=== PATIENT | female | born 1955 | race Caucasian/White ===

== ENCOUNTER 2016-07-24 17:27 | Inpatient (IN) | payer OTHER ==
[~2016-07-24] VITALS: Ht 165.1 cm; Wt 88.0 kg
--- NOTE | ~2016-07-24 | CON ---
PATIENT'S NAME: ZEYNEP NO [facility] AGE: 61 Y [address] ROOM: [place] [address] [place] [facility] [place]MIT DATE: 07/24/2016 Consultation DISCHARGE DATE: FAMILY PHYSICIAN: Jina Spain MD ATTENDING PHYSICIAN: Jina Spain DATE OF CONSULTATION: 07/26/2016 REFERRING PHYSICIAN: Emelia Bonner MD TIME: 12:15 p.m. CHIEF COMPLAINT: Episode of amnesia. HISTORY OF PRESENT ILLNESS: This is a 61-year-old female, really in great health, taking no medications. Her only health issues have been a DVT in 2004 and depression in October of 2015, she is currently on no medications for either. On Tuesday, at about 02:38 to be exact, she remembers putting a roast in the oven, and remembers that time. The next thing she remembers, her significant other was standing by her, wanting to take her to the doctor or the hospital, this was around 04:30. She spoke during that time. She has no recall of that time. Her significant other states she was able to speak and move, and at no time demonstrated any focal weakness. She did come to the hospital, and by the time she arrived, everything was back to normal. Her workup has included a CT, MRI, EKG, and carotids. Of note, she did have a positive stress test yesterday, and is awaiting heart catheterization today. This event has never happened before to her. She denies any history of stroke. PAST MEDICAL HISTORY: Includes 1. Major depression in October of 2015. 2. DVT in 2004. MEDICATIONS: None. SURGERIES: 1. Colonoscopy in 2007. 2. A DEXA scan in 2011. 3. A plugged right eye tear duct, where she sought surgery for in 2004 and 2006. 4. A laparoscopic surgery for pelvic pain. PATIENT'S NAME: ZEYNEP NO [facility] AGE: 61 Y [address] ROOM: [place] [address] [place] [facility] [place]MIT DATE: 07/24/2016 Consultation DISCHARGE DATE: FAMILY PHYSICIAN: Jina Spain MD ATTENDING PHYSICIAN: Jina Spain SOCIAL HISTORY: The patient is , but does have a significant other. She has two children and grandchildren. She does not smoke now, and only has a six-year- pack history. She does not imbibe in alcohol. FAMILY HISTORY: Remarkable for lupus in a maternal uncle, rheumatoid arthritis in a maternal uncle, and pancreatic cancer in a brother, who at the age of 43. Her grandmother had breast cancer, as well as two sisters. She did have dementia in a paternal grandmother. Her maternal great aunt did have Parkinson disease. Dad had a history of prostate cancer. Mother had gallbladder issues. Maternal grandmother had an [place]. REVIEW OF SYSTEMS: All the systems were reviewed and are negative except for those as mentioned in the HPI. PHYSICAL EXAMINATION: VITAL SIGNS: Temperature was 97.5 oral, pulse was 66, respirations were 16, and blood pressure was 145/63. She is saturating 90% on room air. GENERAL: This is a well-groomed, pleasant patient who is participating in the interview and exam. HEAD: Atraumatic and normocephalic. EYES: Pupils are equal and reactive to light and accommodation. Extraocular movements are intact. NECK: Supple without lymphadenopathy nor nuchal rigidity. LUNGS: Clear to auscultation. HEART: Regular rate and rhythm. S1 and S2 without murmur, rub, or gallop. ABDOMEN: Soft with bowel sounds present x4. EXTREMITIES: No cyanosis, clubbing, or edema. NEUROLOGIC: Cranial nerve I was not tested. Cranial nerve II, visual acuity was within normal limits. Visual rubi and fundus were normal. Cranial nerves III, IV, and pupils are equal and reactive to light and accommodation. Extraocular movements are intact without nystagmus. V, facial sensation and corneal reflex were normal. VII, able to raise eyebrows. VIII, hearing was within normal limits. Cranial nerves IX and X, swallowing and phonation were normal. Cranial nerve XI, able to raise shoulders. Cranial nerve XII, tongue is midline without fasciculation. NIH Stroke Scale is zero. The patient is alert and oriented x4. Motor tone is normal with normal muscle bulk. There are no abnormal movements noted. Cerebellar function with the xjyxhl-jc-[id number] and jzis-mq-kjkk was normal. Gait was not observed. LABORATORY DATA AND IMAGING STUDIES: An MRI brain was done that showed no findings of acute ischemic infarct on the diffusion-weighted imaging. No enhancing mass, midline shift, or abnormal PATIENT'S NAME: ZEYNEP NO [facility] AGE: 61 Y [address] ROOM: [address] [address] [place] [facility] [place]MIT DATE: 07/24/2016 Consultation DISCHARGE DATE: FAMILY PHYSICIAN: Jina Spain MD ATTENDING PHYSICIAN: Jina Spain extra-axial fluid was noted. There were generalized atrophic changes with sulcal prominence. There was a tiny area of encephalomalacia from an old infarct at the inferior right cerebellar hemisphere. A lipid panel was completed, which showed cholesterol of 110 and LDL was 50. Carotid Dopplers are pending. The patient is going to go down for a heart catheterization because she had a positive stress test. ASSESSMENT AND PLAN: 1. This certainly looks like transient global amnesia. Transient global amnesia can be brought on by things such as stress or even her cardiac symptoms. It is feasible to rule out seizure with EEG. If EEG is negative, the patient can go home. We discussed with the patient that this would probably not re-occur and is an isolated incident. 2. Cerebellar stroke, old. The patient will be placed on appropriate anti- thrombotic therapy. We will defer to Cardiology to choose the agent, pending her heart catheterization results. Thank you for the opportunity to participate in this shannan patient's care. If you have any questions, please do not hesitate to contact us. SHARONA PURVIS APRN FOR CHRISTIANO MATHEWS MD PP/modl /[id number] d: 07/26/162245 t: 07/30/16 174, CONSULTATION REPORT
--- NOTE | ~2016-07-24 | ESTC ---
Cardiac Perfusion Imaging Demographics Patient Name ONEAL Tadeo Gender Female Patient Number [id number] Race Visit Number [id number] Ethnicity Corporate ID Room Number G3217 Accession Number [id number] Height Date of 1955 Weight Age 61 year(s) BSA Referring Physician Grabiel Flores MD BMI Interpreting Kailey Kapoor Date of study 07/25/2016 Physician Supervising /MLP Kailey Kapoor NM Technologist Bhavana Angulo MD Ordering Physician Grabiel Flores MD Stress Victoria Jose M electroencephalographic technician RVT Stress ECG Reading Kailey Kapoor Nurse Darien Greenberg Physician Procedure Procedure Type: Nuclear Stress Test:Exercise, Cardiolite Stress Test Procedure Start time: 07/25/2016 13:24 Indications: Family history of coronary artery disease. Risk Factors The patient risk factors include:obesity, former tobacco use, family history of premature CAD and (pack years: 6). Conclusions Summary Small mild to moderate fixed defect involving the distal anteroseptum most consistent with soft tissue attenuation.Small to medium sized mild reversible defect involving the inferolateral wall. LVEF:74% Normal WM. Stress Protocols Resting ECG RSR Pre-stress physical exam: Un changed. Predicted HR: 158 bpm ECG Findings No ECG changes suggestive of ischemia. Arrhythmias No rhythm abnormality. Symptoms SOB. Stress Interpretation Duration:7:00 mins. METs:8.5 DP:26 K Achieved:101% MPHR. No chest pain. Reason for termination:SOB. EKG:No ischemia. No arrythmias. DTS:7 (low risk) Imaging Results Applied corrections - Motion correction applied High risk findings Summed scores - Summed stress score: 14 - Summed rest score: 4 - Summed difference score: 10 Stress ejection Ejection fraction:74 % EDV :65 ml ESV :17 ml Stroke volume :48 ml LV mass :108 gr LV size:Normal Normal LV function Imaging Protocols Rest Stress Isotope:Tc99m Sestamibi IV Isotope: Tc99m Sestamibi IV Isotope dose:12.5 mCi Isotope dose:38.5 mCi Date:07/25/2016 11:24 Date:07/25/2016 13:42 Technique: SPECT Technique: Gated Supine SPECT Supine IV remains in place after procedure. Scan Time:15-30 minutes post injection Medical History Admission Data Admission date: 07/24/2016 Admission Time: 21:14 Hospital Status: Inpatient. Signatures dtt: Emelia Bonner dtd: 07/25/16 1324 Physician Self Edit
--- NOTE | ~2016-07-24 | ECHO ---
Transthoracic Echocardiography Report (TTE) Demographics Patient Name ZEYNEP NO Date of Study 07/26/2016 L Patient Number [id number] Visit Number [id number] Date of 1955 Room Number G3217 Gender Female Number Age 61 year(s) Referring Grabiel Flores MD Risk Intern Mayo Jackson [facility], Physician Africa Gonzales RVT Physician Interpreting Kailey Kapoor Animal Trainer Physician MD Supervising Ordering Africa Gonzales MD/MLP Physician Nurse Stress Tire Changer Conclusions Contractility Score Summary Normal Left Ventricular contractility was noted. Summary Normal cardiac chamber sizes. No significant valvular abnormalities. TDS. Procedure Type of Study TTE procedure:2D Echocardiogram. Procedure Date Date: 07/26/2016 Start: 09:40 AM Study Location: Inpatient Portable Technical Quality: Adequate visualization Indications:Elevated Troponin. Appropriate Use Criteria: 9 Patient Status: Routine HR: 60 bpm Allergies - Other:(Bupropion). M-Mode/2D Measurements LV Diastolic Dimension: 4.2 cm LV Systolic Dimension: 2.55 cm LV Septum Diastolic: 0.94 cm LV PW Diastolic: 0.92 cm Cardiac Output: 3.64 l/min LA Dimension: 4 cm Post Pericard Effusion: 0.5 cm LVOT: 2 cm LVOT VTI: 19.3 cm RV Base: 3.96 cm LV Stroke volume: 60.6 ml RV Length: 6.35 cm TAPSE: 2.26 cm TDI-S': 12.6 cm/s Doppler Measurements AV Peak Velocity: 1.27 m/s MV Peak E-Wave: 0.6 m/s AV Peak Gradient: 6.45 mmHg MV Peak A-Wave: 0.8 m/s AV Mean Gradient: 4 mmHg MV E/A Ratio: 0.75 LVOT Peak Velocity: 0.72 m/s MV P1/2t: 82 msec TR Gradient:12.39 mmHg PV Peak Velocity: 1.15 m/s Estimated RAP:5 mmHg PV Peak Gradient: 5.29 mmHg Estimated RVSP: 17 mmHg Estimated PASP: 17.39 mmHg E' Septal Velocity: 0.07 m/s A' Septal Velocity: 0.1 m/s E' Lateral Velocity: 0.07 m/s A' Lateral Velocity: 0.11 m/s Findings Left Ventricle Normal left ventricle size and function. Right Ventricle Normal right ventricle structure and function. Left Atrium Normal left atrial size. Right Atrium Normal right atrial size. Mitral Valve Trivial mitral regurgitation by color Doppler. Aortic Valve Normal aortic valve structure and function. Tricuspid Valve Normal tricuspid valve structure and function. Pulmonic Valve Normal pulmonic valve structure and function. Pericardial Effusion No evidence of pericardial effusion. Miscellaneous Visualized portions of the aortic root and ascending aorta appear normal in size. Pleural Effusion No evidence of pleural effusion. Contractility Score LV regional wall motion:(0-Non visualized 1-Normal 2-Hypokinesis 3-Akinesis 4-Dyskinesis 5-Aneurysm) Signature dtt: Emelia Bonner dtd: 07/26/16 0940 Physician Self Edit
--- NOTE | ~2016-07-24 | NDGEN ---
PATIENT'S NAME: ZEYNEP NO [facility] AGE: 61 Y [address] ROOM: [place] [address] [place] [facility] [place]: 07/24/2016 Neurodiagnostics DISCHARGE DATE: FAMILY PHYSICIAN: Jina Spain MD ATTENDING PHYSICIAN: Jina Spain PROCEDURE: ELECTROENCEPHALOGRAM DATE OF PROCEDURE: 07/27/2016 TEST: TECH: CLINICAL DIAGNOSIS: DURATION OF EE minutes. REASON FOR EEG: The patient is a 61-year-old female, who was in good health. Except for history of DVT in 2004. On 07/24/2016, she became confused and was not making sense. The episode was suggestive of a transient global amnesia. EEG FINDINGS: The patient is awake for majority of the EEG, asleep for about 10%. During the awake portions of EEG 9 to 10 hertz background is seen in the posterior head regions, which is symmetrical rhythmical, waxing, and waning. Activation procedures included photic stimulation between 3 to 30 hertz, which did not show any abnormalities. During the sleep phase, vertex waves were seen in the central head regions. CLASSIFICATION: Normal, awake, sleep 10/20,scalp electrode system. IMPRESSION: This EEG is within normal limits. No epileptiform discharges or EEG seizures were seen during this recording. MD BENTON SMITH/jeffy /[id number] dtt: 08/03/16 0425 KOLTON RAM MOHAN R. dtd: 07/27/16 1217
--- NOTE | ~2016-07-24 | HP ---
PATIENT'S NAME: ZEYNEP NO [facility] AGE: 61 Y [address] ROOM: [place] [address] LOCATION: [facility] [place] ADMIT DATE: 07/24/2016 History & Physical DISCHARGE DATE: FAMILY PHYSICIAN: Jina Spain MD ATTENDING PHYSICIAN: Jina Spain DATE OF SERVICE: CHIEF COMPLAINT: Episode of amnesia. HISTORY OF PRESENT ILLNESS: The patient is a 61-year-old female, who is normally in good health. Her regular physician is Dr. Jina Spain. She really is currently on no medications. She has had a past history of a DVT back in 2004. Other than that, she has had a history of some depression. She is not on any medicines currently for that. The patient states that she was doing completely fine. Approximately 2:30 or so today, she became confused. Her significant other came in and talked to her and he noticed that she was making no sense whatsoever. She did know a few things but not everything consistently, so was almost a near episode of transient global amnesia. He then brought her into the emergency room, and by the time she arrived in the emergency room, actually everything was about back to normal. They did do a workup, which included a CT of the head, chest x-ray, and EKG, all of which were normal. The only thing that did come back abnormal was her troponin level was elevated and was repeated and was even up of slight bit more. She had no chest pain, shortness of breath, etc. It was thought best between the episode of this transient global amnesia and the elevated troponin levels to further evaluate her. PAST MEDICAL HISTORY: ALLERGIES: SHE DID HAVE PROBLEMS WITH BOTH BUPROPION AND VENLAFAXINE CAUSING A TIGHTENING SENSATION IN HER THROAT. IT WAS TREATED BASICALLY JUST BY STOPPING THE MEDICINES. IT DOES NOT SOUND LIKE IT WAS A TRUE ANAPHYLACTIC TYPE THING. CURRENT MEDICATIONS: Essentially none. CHRONIC HEALTH PROBLEMS: She had a history of a DVT in 11/2004, and she was diagnosed with major depressive disorder on 10/20/2015. PREVIOUS SURGERIES: PATIENT'S NAME: ZEYNEP NO [facility] AGE: 61 Y [address] ROOM: [place] [address] LOCATION: [facility] [place] ADMIT DATE: 07/24/2016 History & Physical DISCHARGE DATE: FAMILY PHYSICIAN: Jina Spain MD ATTENDING PHYSICIAN: Jina Spain She had a colonoscopy in 01/2008 that was normal and they recommended repeat in 10 years. She had a DEXA scan in 08/2011 that was normal and they said recheck that in 10 years. In 2004 and 2006, she had a plugged right eye tear duct that worked on. Otherwise, she just had a history of a laparoscopy for pelvic pain in 1980 that was normal. SOCIAL HISTORY: The patient is . She does have a significant other. She has 2 kids and has some grand kids. She enjoys horseback riding and gardening. She is overall active, but does not exercise. As mentioned, she is . She rarely drinks alcohol. She denies illicit drug use. Tobacco: She did smoke from age 17 to 22, but has not smoked since. FAMILY HISTORY: Remarkable for lupus in a maternal uncle, rheumatoid arthritis in a maternal uncle, pancreatic cancer in a brother and he at age 43. Grandmother with breast cancer. Two sisters with breast cancer. Dementia in a paternal grandmother. Maternal great aunt with Parkinson's disease. Dad had a history of prostate cancer. Mother had gallbladder issues. There was a maternal grandmother who had had an NH. REVIEW OF SYSTEMS: HEENT: Denies complaints other than she does have these intermittent episodes of dizziness with exertion. LUNGS: Denies shortness of breath. CHEST: She does have these intermittent, very short-lived chest discomfort. She usually notices it when being active with walking the dog or throwing hay or that type of thing. She describes it as more of a sharp pain in her right lower chest area. She says it lasts a few seconds and usually goes away. That is also when she notices the lightheadedness/dizziness symptoms and is with those same activities, although they do not necessarily occur at the same time in regard to the chest discomfort and lightheadedness/dizziness. GI: Negative. : Negative. MUSCULOSKELETAL: Negative. PHYSICAL EXAMINATION: GENERAL: Shows an alert, 61-year-old female, who is resting comfortably in her bed. She is alert and oriented x3. HEAD: Her head is normocephalic, atraumatic. EARS, EYES, NOSE, AND THROAT: Clear. NECK: Supple. No adenopathy, thyromegaly, or bruits. LUNGS: Clear. HEART: Regular rate and rhythm. ABDOMEN: Benign. Moderately obese. PATIENT'S NAME: ZEYNEP NO [facility] AGE: 61 Y [address] ROOM: [place] [address] LOCATION: [facility] [place] ADMIT DATE: 07/24/2016 History & Physical DISCHARGE DATE: FAMILY PHYSICIAN: Jina Spain MD ATTENDING PHYSICIAN: Jina Spain EXTREMITIES: No cyanosis, clubbing, or edema. NEUROLOGIC: Cranial nerves II through XII are intact. Reflexes are 2+ and symmetric throughout. Sensation and strength intact throughout. LABORATORY DATA: CT scan of her head without contrast was negative. Chest x-ray was normal. She had lab work, which included a lactate normal at 1.2, Accu-Chek 83, CPKs were 125 and 113, troponin I was 0.083 and then a recheck about 2 hours later was 0.127. CBC showed a WBC of 6.3, hemoglobin 13.8, hematocrit 41.5, and platelet count 208. Chemistry panel was normal including glucose of 84, BUN of 16, creatinine 0.8, sodium 142, potassium borderline at 3.6, chloride 106, CO2 of 28, calcium 8.8, total protein 7.4, albumin 3.8, AST 31, ALT 36, alkaline phosphatase 67, total bilirubin 1.1, and eGFR is greater than 60. Protime is 11.3 with an INR of 1.08 and a PTT of 26. Her urinalysis did show 25 of blood, 10 to 20 white cells, rare red cells, 2 to 5 epi's, and moderate bacteria. I did set up a colony count. Her CK-MBs were normal at 1.9 and 1.6. Procalcitonin was normal at less than 0.05. Her differential showed 72.3% neutrophils and 18.8% lymphocytes. Chest x-ray and CT were both normal; CT was of the head. ASSESSMENT: 1. Episode of near-total global amnesia, resolved within about a 2-hour period of time. 2. Episodes of chest pain with slightly elevated troponin, although she has not had any chest pain episodes recently. 3. History of major depressive disorder, currently stable off treatment. 4. History of deep vein thrombosis back in 2004. PLAN: We will go ahead and plan on initiating workup, working up both the elevated troponins and this episode of near-total global amnesia. We will get a carotid Doppler, echocardiogram, and MRI of her head without and with contrast. We will get a Neurology consult. I am also going to do a sed rate and a CRP. For her heart, we will do serial EKG and enzymes. We will consult Dr. Bonner, and of course, we did order the echo, which will help workup both. I will follow the patient along. Dr. Spain is out for the weekend; she will take over on Tuesday morning if the patient is still here. I actually could anticipate her going home if her workup looks fairly good. Currently right now, she is symptom free. HAYDEE LIU MD PATIENT'S NAME: ZEYNEP NO [facility] AGE: 61 Y [address] ROOM: [place] [address] LOCATION: [facility] [place] ADMIT DATE: 07/24/2016 History & Physical DISCHARGE DATE: FAMILY PHYSICIAN: Jina Spain MD ATTENDING PHYSICIAN: Jina Spain/jeffy /[id number] D: [id number] T: [id number] HISTORY & PHYSICAL
--- NOTE | ~2016-07-24 | ER ---
PATIENT'S NAME: ZEYNEP NO [facility] AGE: 61 Y [address] ROOM: [address] [place], [place] [address] [place] [facility] [place]: 07/24/2016 ER/Outpatient Report DISCHARGE DATE: FAMILY PHYSICIAN: Jina Spain MD ATTENDING PHYSICIAN: Jina Spain HISTORY OF PRESENT ILLNESS: This patient is a 61-year-old female who presented to the emergency room with an hour and half to 2-hour history of memory loss, lightheadedness, weakness, and shortness of breath. The patient saw Dr. Anton initially. See Dr. Anton's dictation in regard to the chief complaint, history of present illness, past medical history, physical exam. Dr. Anton asked me to follow up with the patient's laboratory, x-ray, EKG study results; final diagnosis; and treatment plan. I took over the patient's care at shift change. The patient's CT scan of the head showed no intracranial bleed, midline shift, mass effect, or skull fracture. CT scan was read by Radiology, see dictated transcribed report. Chest x-ray showed no acute infiltrate or changes. We will review x-ray with the radiologist. EKG showed no acute ST elevation. There is poor R-wave progression and an inverted T in lead III. I did do 2 EKGs 2 hours apart and they were similar. Her white count was 6300, 72 segs, 19 lymphs, 7 monos, 1 eo, 1 baso; hemoglobin is 13.8; hematocrit 41.5; and platelet count is 298,000. PTT was 26, pro-time was 11.3 with an INR of 1.08. Urinalysis showed 10-20 whites, rare reds, 0-5 epithelial cells, moderate bacteria, 1+ mucus per high-powered field. The patient's procalcitonin was less than 0.05. Lactate was 1.2. Chemistry was normal except for slightly low potassium of 3.6. CPK was normal x2, 2 hours apart. CK-MB was normal x2, 2 hours apart. Initial troponin was elevated at 0.083 and a 2-hour troponin was more elevated at 0.127. I did discuss the fact of this patient's illness with Dr. Bonner in view of the elevated troponin initial and [address] Bonner thought the patient should be observed overnight, possibly undergo some other cardiac tests in the morning. Discussed the patient with Dr. Leger for Dr. Spain. Dr. Leger is coming to the emergency room to evaluate the patient. IMPRESSION: 1. Transient global amnesia, etiology uncertain. 2. Elevated troponin x2, 2 hours apart, with the highest being at 2 hours of 0.127. Etiology uncertain. PLAN: I did discuss with the patient my findings and recommendations, she understands. The patient will be admitted to the hospital. PATIENT'S NAME: ZEYNEP NO [facility] AGE: 61 Y [address] ROOM: [address] [address] [place] [facility] [place]: 07/24/2016 ER/Outpatient Report DISCHARGE DATE: FAMILY PHYSICIAN: Jina Spain MD ATTENDING PHYSICIAN: Jina Spain DELICIA MOJICA MD SDS/modl /[id number] d: 07/25/163 t: 07/25/16 181, OUTPATIENT REPORT
--- NOTE | ~2016-07-24 | DS ---
PATIENT'S NAME: JNUI NO [facility] AGE: 61 Y [address] ROOM: [address] [address] LOCATION: [facility] [place] ADMIT DATE: 07/24/2016 Discharge Summary DISCHARGE DATE: 07/27/2016 FAMILY PHYSICIAN: Jina Spain MD ATTENDING PHYSICIAN: Jina Spain PRINCIPAL DIAGNOSES: 1. Transient global amnesia. 2. Elevated troponin. 3. Positive stress test. 4. History of depression. 5. History of deep venous thrombosis. 6. Old cerebrovascular accident. SUMMARY: Juni is a 61-year-old female, who was admitted with acute neurologic changes, see Dr. Leger's extensive H and P. She was worked up for TIA/stroke. MRI did show an old stroke. Carotid echo, EEG all negative. A stress test was positive but cardiac cath was negative by Dr. Bonner on 07/26/2016. She did well throughout her hospital stay. She had no recurrent symptoms, up and around. Dr. Bonner recommended aspirin and Lipitor for secondary prevention. She is tolerating that fine right now. DISMISSAL: Juni dismissed on 07/27 in improved condition. Her diet will be as tolerated. Recommend healthy cardiac prudent diet. Activity as tolerated. May return to work on 07/29/2016. DISMISSAL MEDICATIONS: 1. Aspirin 81 mg daily. 2. Atorvastatin 40 mg daily. 3. She takes a multivitamin as well as calcium. FOLLOWUP: She will follow up with me in mid August as already scheduled for fasting lipid and a chemistry panel, as well as her yearly exam. She will let us know sooner if any problems. PROGNOSIS: Excellent. I have also recommended a healthy diet. Regular exercise and weight loss in the long-term to help manage her medical problems. MD SOFIA VILLASEÑOR/curtl PATIENT'S NAME: JUNI NO [facility] AGE: 61 Y [address] ROOM: [address] [address] LOCATION: [facility] [place] ADMIT DATE: 07/24/2016 Discharge Summary DISCHARGE DATE: 07/27/2016 FAMILY PHYSICIAN: Jina Spain MD ATTENDING PHYSICIAN: Jina Spain /[id number] d: 07/27/16 1819 t: 07/28/16 1251, DISCHARGE SUMMARY
--- NOTE | ~2016-07-24 | CATH ---
Cardiac Diagnostic Report Demographics Patient Name ONEAL ADHIKARI Gender Female L Date of 1955 Age 61 year(s) Patient Number [id number] Date of Study 07/26/2016 Visit Number [id number] Room Number G32[address] [place] [id number] Ht 165.1 cm Wt 88 kg Referring Grabiel Flores MD Primary Physician Physician Performing Kailey Secondary Physician Physician Emelia BLACK Diagnostic Kailey Assisting Physician Physician Emelia BLACK Interventional Physician Air Crew Supervisor Physician Findings and Conclusions Diagnostic Findings and Conclusion Normal LVEDP. Mild CAD. Diagnostic Recommendations Aggressive secondary prevention measures. Procedure Description The patient was brought to the diagnostic cardiac catheterization-EP laboratory in the fasting, non-sedated state. Informed consent was obtained in the written and verbal form after the risks and benefits were explained. The patient had no further questions and agreed to proceed. The planned puncture-incision site(s) were shaved and prepped with ChloraPrep and draped in the usual sterile manner. Conscious sedation, supplemental oxygen, and pain control medications were delivered by a registered nurse under physician guidance. Surface ECG rhythm, blood pressure measurement, and pulse oximetry were monitored throughout the procedure. Arterial access. The access site was infiltrated with lidocaine. The vessel was entered with the Seldinger technique. A sheath was advanced into the vessel and used for catheter placement. Selective left coronary angiography. A catheter was advanced into the left coronary vessel ostium under Fluoroscopic guidance. Contrast was injected by hand. Images were obtained in multiple projections. Selective right coronary angiography. A catheter was advanced into the right coronary vessel ostium under fluoroscopic guidance. Contrast was injected by hand. Images were obtained in multiple projections. Left heart catheterization. A catheter was advanced across the aortic valve to the left ventricle under fluoroscopic guidance. Resting hemodynamics were obtained. Arterial artery hemostasis was achieved. The patient was transferred to a regular nursing floor via cart accompanied by a nurse. The patient left the laboratory in stable condition. Diagnostic Cath Status: Urgent Procedure Procedure Type Diagnostic procedure:Angiography:, Coronary Angios w/[facility] Indications: Abnormal Stress Test. The procedure was explained in detail to the patient. Risks, complications and alternative treatments were reviewed. Written consent was obtained. Medications Reviewed with Patient prior to Procedure. Angiographic Findings Dominance: Right Cardiac Arteries and Lesion Findings LMCA: Normal (0% Stenosis). LAD: Minor Luminal Irregularities.Type II. LCx: Minor Luminal Irregularities.OM1 and OM2 minor luminal irregularities. RCA: Anteriorly arising dominant RCA had prox mild ectasis. Procedure Data Procedure Date Date: 07/26/2016Start: 02:17 PMEnd: 02:40 PM Entry Locations - Retrograde Percutaneous access was performed through the Right Radial artery (Primary location). A 6 Fr sheath was inserted. Hemostasis was successfully obtained using Mechanical Compression. Closure Comments: R band with 14 cc air deployed by Pradeep Cheney [employer].. Procedure Medications Order and Administration + + + +-------+ !Time !Medication !Dosage !Route ! + + + +-------+ 07/26/2016 02:12 PM !Versed !2 mg !I.V. ! + + + +-------07/26/2016 02:12 PM !Fentanyl !25 mcg !I.V. ! + + + +-------07/26/2016 02:19 PM !Oxygen !2 l/min !NC ! + + + +-------+ !07/26/2016 02:23 PM !Radial Nitroglycerin !100 mcg !I.A. ! + + + +-------+ !07/26/2016 02:23 PM !Radial 2% Lidocaine !40 mg !I.A. ! + + + +-------+ !07/26/2016 02:24 PM !Heparin (ACC_3) !5000 units !I.V. ! + + + +-------+ Devices Used - A6 Fr. BS JR 4 Diag. Catheterwas used for:Right coronary angiography. - A6 Fr. BS JL 3.5 Diag. Catheterwas used for:Left coronary angiography. Contrast Material - Isovue 06695 ml Fluoroscopy Time: Diagnostic: 5:06 minutes. Total: 5:06 minutes. Fluoroscopy Dose: Diagnostic: 1061 mGy. Total: 1061 mGy. Estimated Blood Loss: 20 ml. Medical History Performed Procedures and Imaging Results - Stress testing with SPECT MPIwas performed. Results were: Positive. Risk/Extent of ischemia was: Intermediate risk. Allergies - Other:(Bupropion). Risk Factors The patient risk factors include:obesity, family history of premature CAD, last creatinine: 0.8 mg/dl, creatinine clearance: 101.29 ml/min and former tobacco use (pack years: 6). Admission Data Admission Date: 07/24/2016 Admission Time: 09:14 PM Admit Source: Emergency department Insurance Payors: Private health insurance. Admission Medications + +------+------+---------+---------+ + + !Medication !Dosage!Times !Last !Last !Administered !Comments ! ! ! !Per !Delivery !Delivery ! ! ! ! ! !Day !Date !Time ! ! ! + +------+------+---------+---------+ + + !Aspirin (any) ! ! ! ! !Yes ! ! + +------+------+---------+---------+ + + !Low Molecular ! ! ! ! !Yes ! ! !Weight Heparin! ! ! ! ! ! ! !(any) ! ! ! ! ! ! ! + +------+------+---------+---------+ + + Clinical Evaluation Leading to Procedure - The patient's CAD presentation was assessed as: Non-STEMI. - The patient's anginal syndrome during the past two weeks was assessed as: Class IV according to the [place] Cardiovascular Society Classification System (CCS). Hemodynamics Condition: Rest O2 Consumption: Estimated: 174.83Heart Rate: 58 bpm Pressures (mmHg) +-----+ + !Site !Pressure ! +-----+ + !LV !118/-1 ,3 ! +-----+ + !LV !121/-1 ,3 ! +-----+ + !AO !116/72 (91) ! +-----+ + !LV !120/0 ,3 ! +-----+ + !AO !114/68 (88) ! +-----+ + !AO !108/63 (84) ! +-----+ + Valve Gradients and Areas + +---------+---------+---------+ +---------+ + !Valve !Peak !Mean !Area !Index !Flow !Source ! + +---------+---------+---------+ +---------+ + !Aortic !2 !0 ! ! ! ! ! + +---------+---------+---------+ +---------+ + !Aortic !2 !0 ! ! ! ! ! + +---------+---------+---------+ +---------+ + Shunts Oxygen Values O2 Capacity 187.68 O2 Consumption 174.83 Signatures dtt: Emelia Bonner dtd: 07/26/16 1417 Physician Self Edit
--- NOTE | ~2016-07-24 | ENPV ---
Carotid Duplex Study Demographics Patient Name ZEYNEP NO Date of Study 07/26/2016 Patient Number [id number] Gender Female Date of 1955 Age 61 Visit Number [id number] Height 65 Accession Number [id number] Weight 194 Referring Africa Gonzales Interpreting [facility] Physician Physician Reina Clay Physician Ordering Africa Gonzales Airline Captain Physician Enterprise Application Analyst Reinaldo Tadeo BS, RT Conclusions Summary The right internal carotid artery has mild, 1-39% stenosis. The left internal carotid artery has mild, 1-39%, plaque and stenosis. The right vertebral artery is present with antegrade flow. The left vertebral artery is present with antegrade flow. Recommendations No further follow up recommended unless clinically indicated. Procedure Type of Study: Cerebral:Carotid, Carotid Doppler Bilateral. Additional Indications:global amnesia Allergies - Other:(Bupropion). Patient Status:Routine. Study Location:Inpatient Portable. Technical Quality:Adequate visualization. Risk Factors - The patient's risk factor(s) include: obesity. - The patient has a former tobacco history of 6 years . - The patient's last creatinine was 0.8 mg/dl. Velocities are measured in cm/s ; Diameters are measured in cm Carotid Right Measurements Carotid Left Measurements + +--------+--------+ + + + +--------+ --------+ + + !Location !PSV !EDV !Angle !%Stenosis ! !Location !PSV ! EDV !Angle !%Stenosis ! + +--------+--------+ + + + +--------+ --------+ + + !Prox CCA !94 !14 !60 ! ! !Prox CCA !106 ! 26 !60 ! ! + +--------+--------+ + + + +--------+ --------+ + + !Dist CCA !69 !22 !60 ! ! !Dist CCA !82 ! 22 !60 ! ! + +--------+--------+ + + + +--------+ --------+ + + !Prox ICA !80 !38 !60 ! ! !Prox ICA !89 ! 38 !60 ! ! + +--------+--------+ + + + +--------+ --------+ + + !Dist ICA !48 !24 !24 ! ! !Dist ICA !63 ! 26 !36 ! ! + +--------+--------+ + + + +--------+ --------+ + + !Prox ECA !102 ! !60 ! ! !Prox ECA !89 ! !60 ! ! + +--------+--------+ + + + +--------+ --------+ + + !Vertebral !41 ! !60 ! ! !Vertebral !47 ! !60 ! ! + +--------+--------+ + + + +--------+ --------+ + + !Subclavian !108 ! !60 ! ! !Subclavian !109 ! !60 ! ! + +--------+--------+ + + + +--------+ --------+ + + - There is antegrade vertebral flow noted on the right side. - There is antegrade verte bral flow noted on the left side. - Add'l Measurements:ICAPSV/CCAPSV 0.85.ICAEDV/CCAEDV 2.73. - Add'l Measurements:ICAPS V/CCAPSV 0.84.ICAEDV/CCAEDV 1.45. Signature dtt: Varinder Huang dtd: 07/26/16 1118 Physician Self Edit
--- NOTE | ~2016-07-24 | CON ---
PATIENT'S NAME: ZEYNEP NO [facility] AGE: 61 Y [address] ROOM: [place] [address] LOCATION: [facility] [place] ADMIT DATE: 07/24/2016 Consultation DISCHARGE DATE: FAMILY PHYSICIAN: Jina Spain MD ATTENDING PHYSICIAN: Jina Spain DATE OF CONSULTATION: 07/24/2016 REFERRING PHYSICIAN: Emelia Bonner MD CARDIOLOGY CONSULTATION NOTE REFERRING PHYSICIAN: Patient of Dr. Spain. HISTORY OF PRESENT ILLNESS: Dear Dr. Spain, thank you for asking me to see Ms. No, who is a 61-year- old female patient, who presented to the emergency room yesterday with a spell of having forgotten what happened during 1-hour period between 0230 hours and about 0330 hours or so. At that time for some reason, EKG and troponin were drawn and the troponin was elevated at 0.083 and the second troponin was even higher at 0.127. I was consulted because of that. The patient had no chest pains. On directly questioning today, the patient admits that she has been more short of breath from the beginning of the year than usual. She has been in functional class 2. She denies having any chest pain to me even though Dr. Leger has recorded some chest pains in her case. There is no paroxysmal nocturnal dyspnea or orthopnea. She denies any syncope or presyncope even though she has noticed some dizziness. There are no palpitations or ankle swelling. The patient has no prior history of hypertension, diabetes, elevated cholesterol, tobacco abuse, or family history of premature coronary artery disease. The patient has no history of ME or angina or nitroglycerin use. She denies rheumatic fever, heart murmur, heart failure, dilated or enlarged heart, or any diagnosed cardiac arrhythmias. MEDICATIONS: None. ALLERGIES: 1. BUPROPION. PATIENT'S NAME: ZEYNEP NO [facility] AGE: 61 Y [address] ROOM: [place] [address] LOCATION: [facility] [place] ADMIT DATE: 07/24/2016 Consultation DISCHARGE DATE: FAMILY PHYSICIAN: Jina Spain MD ATTENDING PHYSICIAN: Jina Spain 2. VENLAFAXINE. PAST MEDICAL HISTORY: 1. Laparoscopic abdominal evaluation for abdominal pain. 2. Blocked ear ducts. 3. Sharp intermittent chest pains that she had recorded. 4. Right leg DVT almost 10 years ago. 5. Constipation. SOCIAL HISTORY: The patient is . She denies abusing alcohol or recreational drugs. Her appetite is good. She has been on a weight losing diet and has managed to lose about 17 pounds in the last 6 weeks or so. Sleep is fair. FAMILY HISTORY: No premature coronary artery disease. REVIEW OF SYSTEMS: A 12-point review of systems reveal: 1. Occasional dizziness. 2. Occasional headaches. 3. Some arthritis. PHYSICAL EXAMINATION: VITAL SIGNS: On examination, her blood pressure is 140/80, heart rate is 80s and regular, respirations are 18, and afebrile. HEENT: Normal. NECK: Supple. No JVD, thyromegaly, lymphadenopathy, or carotid bruits. HEART: PMI is not well located. First and second heart sounds are regular. There are no added sounds or murmurs. CHEST: Clear to auscultation. ABDOMEN: Soft. Obese. Bowel sounds are normally present. EXTREMITIES: Reveal no edema. CENTRAL NERVOUS SYSTEM: Intact. ASSESSMENT: 1. Global amnesia apparently CT is negative. 2. Jlq-LW-fztetul elevation myocardial infarction by troponin levels. 3. Recent history of worsening shortness of breath. 4. Occasional dizziness. 5. No significant risk factors for premature coronary artery disease. RECOMMENDATIONS: The patient has already had an echocardiogram ordered. I will get a stress test done today, and based on her initial evaluation, we will make final plans PATIENT'S NAME: ZEYNEP NO [facility] AGE: 61 Y [address] ROOM: [place] [address] LOCATION: [facility] [place] ADMIT DATE: 07/24/2016 Consultation DISCHARGE DATE: FAMILY PHYSICIAN: Jina Spain MD ATTENDING PHYSICIAN: Jina Spain as to her disposition. Again, I appreciate this opportunity to participate in the care of Ms. No. MD SUSAN ALLEN/modl /[id number] d: 07/25/161944 t: 08/03/16 1214, CONSULTATION REPORT
--- NOTE | ~2016-07-24 | ER ---
PATIENT'S NAME: ONEAL [facility] AGE: 61 Y [address] ROOM: [place] [address] LOCATION: [facility] [place] ADMIT DATE: 07/24/2016 ER/Outpatient Report DISCHARGE DATE: FAMILY PHYSICIAN: Jina Spain MD ATTENDING PHYSICIAN: Jina Spain Time of arrival: 1725 hours. Time of evaluation: 1730 hours. CHIEF COMPLAINT: Memory loss. HISTORY OF PRESENT ILLNESS: The patient is a 61-year-old female, who presents to emergency department today with a chief complaint of memory loss. The patient reports that for about 2-hour period, she does not remember what she was doing. She reports she remember eating at about 1430 hours; however, does not remember anything until 1600 hours or so. Denies any chest pain or shortness of breath. She does have some weakness in bilateral upper extremities. Denies any difficulties talking, swallowing, walking. No headache. No nausea or vomiting. No seizure disorder. No vision changes. PAST MEDICAL HISTORY: 1. Blood clots. 2. Major depressive disorder. PAST SURGICAL HISTORY: 1. Colonoscopy. 2. DEXA scan. 3. Laparoscopy. SOCIAL HISTORY: The patient denies any tobacco, alcohol, or illicit drug use. ALLERGIES: 1. BUPROPION. 2. VENLAFAXINE. MEDICATIONS: None. PRIMARY CARE DOCTORS: Jian Spain M.D. REVIEW OF SYSTEMS: PATIENT'S NAME: GUILLERMO [facility] AGE: 61 Y [address] ROOM: [place] [address] LOCATION: [facility] [place] ADMIT DATE: 07/24/2016 ER/Outpatient Report DISCHARGE DATE: FAMILY PHYSICIAN: Jina Spain MD ATTENDING PHYSICIAN: Jina Spain All systems are reviewed by myself and negative with the exception of those discussed in HPI and past medical history. PHYSICAL EXAMINATION: VITAL SIGNS: Weight 89 kg. Blood pressure 183/84, pulse 65, respiratory rate 16, temperature 97.7, oxygen saturation 97% on room air. GENERAL: The patient is a 61-year-old female, who appears stated age, in no acute distress at this time HEENT: Head: Normocephalic and atraumatic. Pupils are equal, round, and reactive to light and accommodation. Extraocular motions are intact. Nares are patent bilaterally. TMs are clear. Oropharynx is clear. NECK: Supple. There is no nuchal rigidity. CARDIOVASCULAR: Regular rate and rhythm. No murmurs, rubs, or gallops. LUNGS: Clear to auscultation bilaterally. No wheezes, rales, or rhonchi. ABDOMEN: Soft, nontender, and nondistended. No rebound, rigidity, or guarding. MUSCULOSKELETAL: The patient moves all 4 extremities. 5/5 muscle strength. NEUROLOGICAL: GCS 15. Alert and oriented x4. Cranial nerves 2 through 12 are grossly intact. Normal facial sensation. Normal motor to the face, shrugs, and shoulders without difficulties. Normal tongue movement. Equal terminal carman strength bilaterally. No pronator drift. Downward going toes. No clonus. 2/4 reflexes. Heel-to-toe is normal. Romberg was negative. SKIN: Warm and dry. LABORATORY DATA AND X-RAYS: Labs and x-rays are pending, at time of transfer of care. IMPRESSION: 1. Transient global amnesia. 2. Please see Dr. Gutierrez's dictation. 3. Initial visit. EMERGENCY DEPARTMENT COURSE: The patient brought back to the examination room. Seen and evaluated by myself. Laboratory analysis and imaging are ordered. I have discussed the case with Dr. Gutierrez at shift change. He will follow up on laboratory analysis and see the patient and appropriate disposition after. Please see his dictation. DISPOSITION: Per Dr. Gutierrez. PATIENT'S NAME: ZEYNEP NO [facility] AGE: 61 Y [address] ROOM: [address] [address] LOCATION: [facility] [place] ADMIT DATE: 07/24/2016 ER/Outpatient Report DISCHARGE DATE: FAMILY PHYSICIAN: Jina Spain MD ATTENDING PHYSICIAN: Jina Spain DO KJR/jeffy /[id number] d: 07/25/16721 t: 07/28/16 0652, OUTPATIENT REPORT
[2016-07-24 17:49] LABS: BILIRUBIN URINE NEGATIVE (NEGATIVE); BLOOD URINE 25 /UL (NEGATIVE); COLOR URINE STRAW (YELLOW); GLUCOSE URINE NEGATIVE (NEGATIVE); KETONE URINE 5 mg/dL (NEGATIVE); LEUKOCYTES URINE 500 /UL (NEGATIVE); NITRITE URINE NEGATIVE (NEGATIVE); PROTEIN URINE NEGATIVE (NEGATIVE); TURBIDITY URINE CLEAR (CLEAR); UROBILINOGEN URINE NORMAL (NORMAL)
[2016-07-24 17:57] LABS: BASOPHIL # 0.1 K/uL (0.0-0.2); BASOPHIL % 0.8 %; EOSINOPHIL # 0.1 K/uL (0.0-0.5); EOSINOPHIL % 1.3 %; HEMATOCRIT 41.5 % (33.0-46.0); HEMOGLOBIN 13.8 g/dL (10.0-15.0); IMMATURE GRANULOCYTE % 0.3 %; LYMPHOCYTE # 1.2 K/uL (0.8-4.0); LYMPHOCYTE % 18.8 %; MCH 31.4 pg (27.0-34.0); MCHC 33.3 gm/dL (32.0-36.5); MCV 94.5 fl (83.0-98.0); MONOCYTE # 0.4 K/uL (0.0-1.0); MONOCYTE % 6.5 %; MPV 10.5 fl (9.4-12.4); NEUTROPHIL # (ANC) 4.5 K/uL (1.8-7.8); NEUTROPHIL % 72.3 %; NRBC % 0 /100WBC (0-0.00); PLATELET COUNT 208 K/uL (150-450); RBC 4.39 M/uL (3.50-5.50); RDW-CV 12.5 % (11.9-14.6); WBC 6.3 K/uL (4.0-11.0)
[2016-07-24 18:06] LABS: INR - (THERAPEUTIC) 1.08 (0.92-1.07); PROTIME 11.3 SECONDS (9.8-11.4); PTT 26 SECONDS (25-32)
[2016-07-24 18:07] LABS: BACTERIA URINE MODERATE (NEGATIVE); MUCUS URINE 1+ (NEGATIVE); RBC URINE RARE #/HPF (NEGATIVE)
[2016-07-24 18:15] LABS: ALBUMIN 3.8 gm/dL (3.5-5.0); ALK PHOS 67 IU/L (33-138); ALT 36 IU/L (12-78); ANION GAP 11.6 (10.0-19.0); AST 31 IU/L (10-40); BLOOD UREA NITROGEN 16 mg/dL (6-24); CALCIUM 8.8 mg/dL (8.5-10.5); CHLORIDE 106 mMol/L (96-110); CO2 28 mMol/L (22-32); CPK 125 IU/L (21-215); CREATININE 0.8 mg/dL (0.5-1.1); ESTIMATED GFR (MDRD EQUATION) > 60; POTASSIUM 3.6 mMol/L (3.7-5.1); SODIUM 142 mMol/L (135-145); TOTAL BILIRUBIN 1.1 mg/dL (0.0-1.5); TOTAL PROTEIN 7.4 g/dL (6.0-8.4)
--- NOTE | 2016-07-25 03:17 | NUR ---
ADMIT AT 2210 FOR EPISODE OF GLOBAL AMNESIA. PATIENT WAS FOUND BY SIGNIFICANT OTHER NOT MAKING SENSE AROUND 1430 AND NOT REMEMBERING THINGS FOR ABOUT 2 1/2 HOURS. PATIENT SEEN IN ER AND BY THE TIME SHE WAS SEEN THERE SHE WAS SYMPTOM FREE. ALL TESTS INCLUDING CT OF HEAD WERE NORMAL. SURGICAL HX INCLUDES EXPLORATORY LAP FOR ABDOMINAL PAIN AND R) EYE SURGERY X2. MEDICAL HX INCLUDES: BLOCKED TEAR DUCTS R) EYE, INTERMITTENT CHEST PAIN, INTERMITTENT DIZZINESS, CONSTIPATION, DEPRESSION.
[2016-07-25 03:33] LABS: ANION GAP 13.6 (10.0-19.0); BLOOD UREA NITROGEN 14 mg/dL (6-24); CALCIUM 8.7 mg/dL (8.5-10.5); CHLORIDE 106 mMol/L (96-110); CO2 26 mMol/L (22-32); CREATININE 0.7 mg/dL (0.5-1.1); ESTIMATED GFR (MDRD EQUATION) > 60; POTASSIUM 3.6 mMol/L (3.7-5.1); SODIUM 142 mMol/L (135-145)
--- NOTE | 2016-07-25 07:42 | NUR ---
Significant Event: ADMIT AT 2210. A/O X3, CONTINUES TO REMEMBER AMNESIA EVENT. NEURO CHECKS HAVE REMAINED CONSISTANT THROUGH NIGHT AND NO DEFICITS. IS HAVING CARDIAC ENZYMES Q6HRS X2 MORE. WILL HAVE EKG THIS AM. BILAT CAROTIDS THIS AM. CARDIOLOGY CONSULT THIS AM. TELENEURO TO SEE TODAY. WILL HAVE MRI TODAY. ON TELE AND NO CALLS. WILL ALSO HAVE ECHO TODAY. ACTIVITY TOLERATED, BED ALARM ON FOR SAFETY. IV TO R) HAND. SLEPT WELL THROUGH NIGHT. Follow up:
[2016-07-25 08:49] LABS: CPK 84 IU/L (21-215)
[2016-07-25 14:57] LABS: CPK 75 IU/L (21-215)
--- NOTE | 2016-07-25 19:21 | NUR ---
Patient is alert and oriented. On room air, independent. IV to R) hand saline locked. NPO for stress test today, regular diet now. In stress test for most of afternoon. MRI this AM. No complaints of pain. Dr. Partida in to see patient at shift change about stress test. Tele with no calls. Neurology consult but has not been here yet. Continue to monitor for amnesia.
--- NOTE | 2016-07-26 04:38 | NUR ---
Significant Event: Patient alert and oriented X4. Up ad rad in room. Denies weakness or dizziness when getting up. Pneumatics on. Plan for heart cath today. Clear liquids tonight and NPO at 0600 and to start IVF at 0600. L) heart cath at 1400. Vitals stable and on room air. Telemetry on, no calls. CT chest PE protocol negative. Stress test yesterday. Still needs neuro exam. Denies pain Follow up: Keep NPO after 0600
[2016-07-26 06:58] LABS: ANION GAP 12.2 (10.0-19.0); BLOOD UREA NITROGEN 15 mg/dL (6-24); CALCIUM 9.2 mg/dL (8.5-10.5); CHLORIDE 104 mMol/L (96-110); CO2 28 mMol/L (22-32); CREATININE 0.8 mg/dL (0.5-1.1); ESTIMATED GFR (MDRD EQUATION) > 60; POTASSIUM 4.2 mMol/L (3.7-5.1); SODIUM 140 mMol/L (135-145)
--- NOTE | 2016-07-26 13:11 | NUR ---
Met with patient at bedside. Introduced myself and explained the role of the CM department to her. Patient states she lives her significant other in [place]. She works at [employer] and has been there for 41 years. She has daughters that live here in [place] and states she has good family support. She is scheduled to have a heart cath today and depending on what they do she will either return to [facility] or she may transfer to [facility]U. Patient's discharge goal/plan is to return home with no additional needs. Explained to her that either I or another disabilities caregiver will continue to follow and assist with safe discharge plan.
--- NOTE | 2016-07-26 19:18 | NUR ---
Significant event: To crime lab analyst during shift. NPO since 0600 this am. denies pain. alert and oriented.
--- NOTE | 2016-07-27 03:35 | NUR ---
Significant Event: Patient alert and oriented X4. Up with stand by assist. Saline locked IV to R) hand per post heart cath orders. L) AC IV saline locked. Vitals stable and on room air. Proximal and distal pulses WNL. No pain to radial site. No bleeding. Dressing is clean/dry/intact. States she has some dizziness off and on. Bed alarm on. Telemetry on, no calls. Plan for EEG today. Cardiac diet. Follow up: Monitor pulses
--- NOTE | 2016-07-27 11:22 | NUR ---
Reviewed patient's chart. No concerns following heart cath yesterday. Planning an EEG for today with possible discharge to home following EEG, depending on the results. Will continue to follow and offer supports as needed.
[2016-07-27] MEDS ORDERED: ASPIRIN (CHILDR81 MG PO (12:17)
[2016-07-27] MEDS ORDERED: LIPITOR40 MG PO (12:18)
--- NOTE | 2016-07-27 18:45 | NUR ---
D: ORDERS RECEIVED FOR THE PATIENT TO BE DISCHARGED TO HOME THIS EVENING. I: DISMISSAL INSTRUCTIONS WERE PREPARED AND REVIEWED WITH THE PATIENT AT BEDSIDE. THE FOLLOWING INFORMATION WAS DISCUSSED INCLUDING [employer]RAMES TEACHING SHEETS PROVIDED: TROPONIN, PREVENTING DVT, ASPIRIN AND LIPITOR. REVIEWED HER FOLLOW UP APPOINTMENT WITH DR. ASH ON August AT [address] ASH WILL REVIEW ANY TEXT RESULTS WITH HER AT THAT TIME. DISCUSSED NEW PRESCRIPTION FOR LIPITOR THAT SHE WILL NEED TO FILL AT HER PHARMACY. R: THE PATIENT VERBALIZED UNDERSTANDING OF THE DISMISSAL EDUCATION AT THE TIME OF TEACHING WITH NO FURTHER QUESTIONS. P: THE ABOVE INFORMATION WAS SHARED WITH THE PRIMARY NURSE AND THE CHARGE NURSE THAT THE DISMISSAL EDUCATION WAS COMPLETED. THE PATIENT IS READY FOR DISCHARGE TO THE FRONT DOOR VIA WHEEL CHAIR BY NURSING STAFF WHEN A RIDE IS AVAILABLE TO COME GET HER TO TAKE HER HOME.
--- NOTE | 2016-07-27 19:56 | NUR ---
Significant event: Denies pain. right radial pulse good. No edema noted. EEG done today. Alert and oriented.
--- NOTE | 2016-07-27 23:16 | NUR ---
Patient discharged at 2009. Vitals stable and on room air. General dismissal orders given. Orders about how to take cath of post heart cath given and signed by patient. Patient denies pain at this time. Son giving patient ride home. Appt with Dr. Grabiel arciniega. Denies any questions at this time. Wheeled to car by staff.
== END 2016-07-27 20:10 | disposition disaster alternative care site (69) | DRG 70 ==
LOC: GMED 17:27 → GMSU 21:14
PROVIDERS: Emergency Medicine; Internal Medicine Interventional Cardiology; ADMIT Obstetrics & Gynecology Obstetrics
PROC: 4A023N7 Measurement of Cardiac Sampling and Pressure, Left Heart, Percutaneous Approach (ICD-10-PCS; principal; 2016-07-26)
PROC: B215YZZ Fluoroscopy of Left Heart using Other Contrast (ICD-10-PCS; principal; 2016-07-26)
PROC: B211YZZ Fluoroscopy of Multiple Coronary Arteries using Other Contrast (ICD-10-PCS; principal; 2016-07-26)
DX: G45.4 Transient global amnesia (principal); I21.4 Non-ST elevation (NSTEMI) myocardial infarction; I25.10 Atherosclerotic heart disease of native coronary artery without angina pectoris; Z86.718 Personal history of other venous thrombosis and embolism; Z86.73 Personal history of transient ischemic attack (TIA), and cerebral infarction without residual deficits
CPT/HCPCS: A9500; C1894; J1644; J1650; J2250; J3010; J7030; Q9967